=== PATIENT | female | born 1995 | race Caucasian/White ===

== ENCOUNTER 2023-01-04 18:57 | Emergency (ER) | payer OTHER ==
[~2023-01-04] VITALS: Ht 157.5 cm; Wt 79.5 kg
[2023-01-04 19:02] VITALS: TEMP 98.1
[2023-01-04 20:02] LABS: BASO % 0.2 % (0.0-2.0); EOS # 0.1 K/mm3 (0.0-0.7); EOS % 0.5 % (0.0-4.0); GRAN # 15.1 K/mm3 (1.4-6.5); GRAN % 82.8 % (42.2-75.2); HEMOGLOBIN 15.9 g/dl (12.5-16.0); LYMPH # 2.4 K/mm3 (1.2-3.4); LYMPH % 13.1 % (20.0-51.0); MEAN CELL VOLUME 92 fl (80.0-100.0); MEAN CORPUSCULAR HEMOGLOBIN 32 pg (27-31); MEAN CORPUSCULAR HGB CONC 35 g/dl (33.0-37.0); MEAN PLATELET VOLUME 10.2 fl (7.4-10.4); MONO # 0.5 K/mm3 (0.1-0.6); PLATELET COUNT 418 K/mm3 (130-400); RED BLOOD COUNT 5.01 M/mm3 (4.10-5.30); REDCELL DISTRIBUTION WIDTH-CV 13.6 % (11.5-14.5)
[2023-01-04 20:46] LABS: COLLECTION METHOD CLEAN CATCH
[2023-01-04 20:51] LABS: MUCOUS Present (NOT PRESENT); SQUAMOUS EPITHELIAL 0-2 /hpf (0-10); URINE BACTERIA None Seen /hpf (NONE SEEN); URINE COLOR Yellow (YELLOW); URINE RBC 0-2 /hpf (0-2)
[2023-01-04 20:52] LABS: PH 5.5 (5-8); URINE APPEARANCE Hazy (CLEAR/HAZY); URINE BLOOD 2+ (NEGATIVE); URINE GLUCOSE Negative (NEGATIVE); URINE KETONE 1+ (NEGATIVE); URINE NITRATE Negative (NEGATIVE); URINE PROTEIN(semi-quant) 1+ (NEGATIVE); URINE UROBILINOGEN 0.2 (NEGATIVE)
[2023-01-04 21:02] LABS: ALBUMIN 4.3 gm/dL (3.5-5.0); BILIRUBIN,TOTAL 0.7 mg/dL (0.2-1.2); CALCIUM 8.9 mg/dL (8.4-10.2); CREATININE, serum 0.84 mg/dL (0.57-1.11); POTASSIUM 3.7 mmol/L (3.5-4.5); TOTAL PROTEIN 8.4 gm/dL (6.2-8.1)
[2023-01-05] VITALS: BP 118/71; PULSE 80
== END 2023-01-05 00:03 | disposition home or self-care (01) ==
LOC: COL.ER 18:57
PROVIDERS: Family Medicine; Physician Assistant
DX: O90.89 Other complications of the puerperium, not elsewhere classified (principal); R11.2 Nausea with vomiting, unspecified; R10.30 Lower abdominal pain, unspecified; O99.13 Other diseases of the blood and blood-forming organs and certain disorders involving the immune mechanism complicating the puerperium; D72.829 Elevated white blood cell count, unspecified
CPT/HCPCS: J2405; J2550; J7030; Q9967

== ENCOUNTER → 2023-01-23 | Outpatient (CLI) | payer OTHER ==
--- NOTE | 2023-01-23 15:54 | NUR ---
Pt, Darrin Clark, presents to walk-in clinic with 1 month old baby boy, Zbigniew Clark. Pt states she has difficulty latching Zbigniew on the right side. She was referred by AMY Jenkins. Pt delived on 12/26/22 at [facility]. She states Zbigniew weighed 7# 5oz at , on and 01/13/23 he weighed 8# 4oz at Dr. Raphael's office. Today Zbigniew weighs 9# 6.5oz (4266 gms). Pt places Zbigniew to the breast in the traditional cradle hold, allowing for a shallow latch. advises pt to use cross cradle hold to place the breast further into baby's mouth. Once he is latched deeper she states this feels more comfortable. After bilaterally Zbigniew has a gain of 3.7oz (106 gm). POC: Breastfeed ad johnnie with better attention to deep latching. F/U: as scheduled with physicians, walk-in clinic as desired. Questions invited and answered.
== END ==
LOC: LAC 08:52
DX: Z39.1 Encounter for care and examination of lactating mother (principal); Z71.89 Other specified counseling